=== PATIENT | male | born 1940 | race Caucasian/White ===

== ENCOUNTER 2025-10-20 08:54 | Emergency (ER) | payer MEDICARE, OTHER ==
[2025-10-20 09:22] LABS: #Basophils Less than 0.03 10x3/uL (0.0-0.2); #Eosinophils 0.08 10x3/uL (0.0-0.5); #Monocytes 0.56 10x3/uL (0.0-1.1); #Neutrophils 4.32 10x3/uL (1.5-8.4); %Basophils 0.3 % (0.0-2.0); %Eosinophils 1.2 % (0.0-6.0); %Lymphocytes 22.9 % (18.0-47.0); %Monocytes 8.7 % (0.0-10.0); %Neutrophils 66.7 % (40.0-75.0); Hematocrit 39.6 % (38.8-50.0); Hemoglobin 13.1 g/dL (13.5-17.5); Mean Corpuscular Hemoglobin 30.7 pg (27.0-33.0); Mean Corpuscular Volume 92.7 fL (81.2-95.1); Platelet Count 296 10x3/uL (150-450); Red Blood Cell (RBC) Count 4.27 10x6/uL (4.32-5.72); White Blood Cell (WBC) Count 6.47 10x3/uL (3.5-10.5)
[2025-10-20 09:42] LABS: ALT (SGPT) 14 U/L (Less than 45); AST (SGOT) 15 U/L (11-34); Albumin 3.7 g/dL (3.1-4.5); Alkaline Phosphatase 79 U/L (40-110); Anion Gap 10 mmol/L (10-20); BUN (Urea Nitrogen) 18 mg/dL (8.4-25.7); Bilirubin, Total 0.3 mg/dL (0.3-1.2); Calc. Creatinine Clearance 0 mL/min (70-130); Calcium 9.0 mg/dL (7.8-10.44); Carbon Dioxide 26 mmol/L (23-31); Chloride 104 mmol/L (98-107); Globulin 2.4 g/dL (2.4-3.5); Glucose 360 mg/dL (83-110); Potassium 4.3 mmol/L (3.5-5.1); Sodium 136 mmol/L (136-145)
[2025-10-20 09:47] LABS: Troponin I Less than 0.010 ng/mL (< 0.028)
[2025-10-20 09:56] LABS: D-Dimer Test 0.4 mcg/mL (0.19-0.50); INR-International Normal Ratio 0.9; PTT 23.9 sec (22.0-33.0); Prothrombin Time 10.2 sec (9.5-12.1)
[2025-10-20] MEDS ORDERED: Aspirin Chewable 81 MG TAB ONE (10:17)
[2025-10-20 12:25] LABS: Troponin I 0.011 ng/mL (< 0.028)
== END 2025-10-20 13:14 | disposition home or self-care (01) ==
LOC: CSHERS 08:54
DX: R07.89 Other chest pain (principal); B02.9 Zoster without complications; F17.220 Nicotine dependence, chewing tobacco, uncomplicated; Z55.6 Problems related to health literacy
CPT/HCPCS: 71045; 80053; 83880; 84484; 85025; 85379; 85610; 85730; 93005; 94760